=== PATIENT | female | born 1985 | race Caucasian/White ===

== ENCOUNTER 2020-09-08 13:01 | Outpatient (REF) | payer MEDICAID, SELFPAY ==
--- NOTE | 2020-09-08 | US_ITS ---
EXAMINATION: US THYROID CLINICAL INFORMATION: Nontoxic multinodular goiter. COMPARISON: Ultrasound thyroid soft tissues 05/14/2019 TECHNIQUE: Linear transducer verdugo-scale and color Doppler examination with attention to the region of the thyroid. FINDINGS: SIZE: Measurements of the thyroid lobes and nodules are given in sagittal, anteroposterior and transverse dimensions respectively. SIZE: Measurements of the thyroid lobes and nodules are given in sagittal, anteroposterior and transverse dimensions respectively. Right thyroid lobe: 4.7 x 1.5 x 1.4 cm, volume 5.3 mL. Previously 4.3 x 1.1 x 1.5 cm, volume 3.5 mL. Left thyroid lobe: 5.2 x 1.2 x 1.4 cm, volume 4.5 mL. Previously 5.2 x 1.2 x 1.5 cm, volume 4.7 mL. Isthmus: 0.37 cm in maximum AP dimension. Previously 0.28 cm. PARENCHYMA: The gland echotexture is homogeneous. Thyroid vascularity is normal. RIGHT THYROID LOBE: There are 3 nodules seen. 1. Location: Upper. Size: 0.8 x 0.5 x 0.4 cm. Previous: 0.4 x 0.5 x 0.4 cm. Nodule characteristics: Heterogeneous, hypoechoic rind with no intranodular flow. 2. Location: Midpole. Size: 0.2 x 0.2 x 0.2 cm. Nodule characteristics: Heterogeneous, hypoechoic rind with intranodular flow. 3. Location: Midpole. Size: 0.9 x 0.6 x 0.7 cm. Previous: 0.7 x 0.6 x 0.7 cm. Nodule characteristics: Heterogeneous, smoothly marginated with intranodular flow. ISTHMUS: There are 2 nodules seen. 1. Location: Right isthmus. Size: 0.4 x 0.3 x 0.3 cm. Nodule characteristics: Heterogeneous, hypoechoic rind with intranodular flow. 2. Location: Right isthmus. Size: 0.2 x 0.1 x 0.2 cm. Nodule characteristics: Hypoechoic, smoothly marginated with no intranodular flow. LEFT THYROID LOBE: There are 2 nodules seen. 1. Location: Midpole. Size: 1.6 x 0.8 x 0.9 cm. Previous: 1.4 x 0.9 x 1.0 cm. Nodule characteristics: Heterogeneous, smoothly marginated with intranodular flow. 2. Location: Midpole. Size: 0.4 x 0.2 x 0.2 cm. Nodule characteristics: Hypoechoic, smoothly marginated with intranodular flow. NODES: No lymphadenopathy is seen in the tissue surrounding the thyroid gland. US/US thyroid IMPRESSION: Nonsuspicious bilateral subcentimeter thyroid nodules. Some of the nodules are new. Recommend followup.
== END 2020-09-08 13:02 | disposition home or self-care (01) ==
LOC: HO.US 13:01
PROVIDERS: Visit Provider Internal Medicine
DX: E04.2 Nontoxic multinodular goiter (principal)
CPT/HCPCS: 76536

== ENCOUNTER 2020-09-24 09:36 | Outpatient (REF) | payer MEDICAID, SELFPAY ==
--- NOTE | ~2020-09-24 | MR_ITS ---
EXAMINATION: MR BRAIN WITHOUT AND WITH CONTRAST CLINICAL INFORMATION: Nipple discharge. Irregular menstruation. COMPARISON: None available. TECHNIQUE: MRI of the brain was obtained using routine sequences without and following the administration of 3.5 mL of Gadavist intravenous contrast. FINDINGS: No focal restricted diffusion is demonstrated to suggest acute or subacute cerebral ischemia. No evidence of acute or chronic hemorrhagic products on heme-sensitive imaging. Nonspecific few scattered periventricular and deep white matter T2 FLAIR hyperintensities. No additional parenchymal signal abnormalities. The ventricles are normal in morphology and size. No abnormal mass effect. No midline shift. Normal morphology and signal intensity of the pituitary gland on precontrast imaging. Normal posterior pituitary bright spot. No hyperenhancing or hypoenhancing lesions demonstrated on post contrast imaging. The pituitary infundibulum is normal in morphology and remains midline in position. The suprasellar cistern remains patent. No abnormal mass effect on the optic chiasm. No abnormalities of the posterior fossa with normal appearance of the brainstem and cerebellum. The cerebellar tonsils are positioned at the level the foramen magnum. Normal arterial and venous vascular flow voids are present. No abnormal contrast enhancement. Normal, homogeneous marrow signal. No signal abnormalities within the paranasal sinuses or mastoids. MR/MR head/brain wo/w con IMPRESSION: 1. No acute intracranial abnormalities. 2. Normal MRI evaluation of the pituitary gland. 3. Nonspecific mild white matter changes.
== END 2020-09-24 09:37 | disposition home or self-care (01) ==
LOC: HO.MRI 09:36
PROVIDERS: Visit Provider Family Medicine
DX: E06.9 Thyroiditis, unspecified (principal); N64.52 Nipple discharge; N92.6 Irregular menstruation, unspecified; R79.89 Other specified abnormal findings of blood chemistry
CPT/HCPCS: 70553; A9585

== ENCOUNTER → 2020-09-29 10:42 | Outpatient (BNVA) | payer MEDICAID, SELFPAY | PROVIDERS: PCP Family Medicine; Visit Provider Nurse Practitioner ==

== ENCOUNTER 2020-10-08 13:56 | Outpatient (REF) | payer MEDICAID, SELFPAY ==
--- NOTE | ~2020-10-08 | MM_ITS ---
EXAMINATION: MM DIAGNOSTIC DIGITAL BREAST TOMOSYNTHESIS, BILATERAL US DIAGNOSTIC ULTRASOUND BREAST, BILATERAL CLINICAL INFORMATION: 35-year-old with bilateral nipple discharge for 2 months with squeezing. No palpable mass. No prior breast imaging. Family history breast cancer, maternal aunt. The lifetime risk of breast cancer based on the Tyrer-Cuzick Model is 13%. COMPARISON: None (current study represents initial baseline exam). TECHNIQUE: Digital breast tomosynthesis is performed in both the craniocaudal and mediolateral oblique views along with computer-aided detection (CAD). Synthesized 2D images are generated from the tomosynthesis. Ultrasound bilateral breasts is targeted to the retroareolar and periareolar regions. In addition, targeted left ultrasound performed 8:00 position and targeted ultrasound right 10:00-11:00 position. Grayscale imaging and color Doppler are performed without and with harmonics. FINDINGS: There are scattered areas of fibroglandular density (ACR BI-RADS breast composition Category b). There is no significant mass. No architectural abnormality. No abnormal calcifications. No duct ectasia. There is no skin thickening or coarsening of the Renan's ligaments. The axilla are unremarkable. Subtle oval nodule present on left lower inner quadrant approximately 0.9 cm, better appreciated on tomography. There is subtle oval nodule mid upper right breast on MLO tomography measuring approximately 1.0 cm. Ultrasound bilateral retroareolar and periareolar breasts show no cystic or solid mass or focal duct ectasia. No skin thickening or edema tracking in the soft tissue planes. Additional targeted ultrasound inferior medial left breast demonstrates cyst 8:00 position 6 cm from nipple measuring 1.0 x 0.4 cm. There is fine internal avascular septation. There is increased through-transmission of sound and no associated color flow. Additional targeted ultrasound right breast demonstrates benign-appearing circumscribed hypoechoic mass 11:00 position 6 cm from nipple measuring approximately 1.1 x 0.9 x 0.4 cm. There are internal echoes, circumscribed margins, increased through-transmission of sound, and no associated color flow. This may represent cyst with apocrine metaplasia. There is a similar appearing adjacent satellite nodule slightly deeper measuring 0.6 x 4 cm. Results are discussed with the patient at time of visit. The bilateral nipple discharge may suggest a systemic endocrine etiology. This may be correlated with laboratories. The nodule upper right breast with adjacent similar-appearing satellite nodule are probably benign, possibly cyst with apocrine metaplasia. Recommend targeted right breast ultrasound in 6 months. The left breast is unremarkable. MM/MM tomosynthesis diagnostic BI IMPRESSION: 1. No suspicious mammographic finding. No duct ectasia. 2. Right: Benign-appearing nodule 11:00 position 1.1 cm with smaller adjacent similar appearing satellite nodule, possibly cyst with apocrine metaplasia. 3. Left: Incidental cyst 8:00 position 1.0 cm. ASSESSMENT: BI-RADS 3: Probably Benign RECOMMENDATION: 1. The presence of bilateral nipple discharge may suggest underlying systemic/endocrine etiology. This could be correlated with laboratories. 2. Targeted right breast ultrasound in 6 months. This patient's information was entered into a reminder system with a target due date for their next mammogram.
== END 2020-10-08 13:57 | disposition home or self-care (01) ==
LOC: HO.MAMMO 13:56
PROVIDERS: PCP Family Medicine; Visit Provider Family Medicine
DX: N64.52 Nipple discharge (principal)
CPT/HCPCS: 76642; 77062; 77066

== ENCOUNTER → 2020-10-29 09:31 | Outpatient (BNVA) | payer MEDICAID, SELFPAY | PROVIDERS: PCP Family Medicine; Visit Provider Nurse Practitioner | DX: A04.8 Other specified bacterial intestinal infections (principal); R11.2 Nausea with vomiting, unspecified; K29.60 Other gastritis without bleeding ==

== ENCOUNTER → 2020-11-19 13:26 | Outpatient (BNVA) | payer MEDICAID, SELFPAY | PROVIDERS: PCP Family Medicine; Visit Provider Nurse Practitioner | DX: A04.8 Other specified bacterial intestinal infections (principal); R11.2 Nausea with vomiting, unspecified; K29.60 Other gastritis without bleeding ==

== ENCOUNTER → 2020-12-31 15:32 | Outpatient (BNVA) | payer MEDICAID, SELFPAY | PROVIDERS: PCP Family Medicine; Visit Provider Student in an Organized Health Care Education/Training Program | DX: M79.7 Fibromyalgia (principal) | CPT/HCPCS: 99212 ==

== ENCOUNTER 2021-04-27 13:12 | Outpatient (REF) | payer MEDICAID, SELFPAY ==
--- NOTE | ~2021-04-27 | US_ITS ---
EXAMINATION: US DIAGNOSTIC ULTRASOUND BREAST, LEFT CLINICAL INFORMATION: Short interval follow-up probable benign nodularity upper outer right breast. COMPARISON: Targeted right breast ultrasound 10/08/2020, baseline diagnostic mammography 10/08/2020. TC score 13%. TECHNIQUE: Ultrasound right breast is targeted to the upper outer quadrant. Grayscale imaging and color Doppler are performed without and with harmonics. FINDINGS: The hypoechoic nodule under 1 cm at 10:00-11:00 position 8 cm from nipple is stable measuring 0.6 cm in greatest dimension. Margins are smooth. There is an adjacent oval island of fibroglandular island versus isoechoic nodule similar to prior ultrasound and stable again measuring approximately 11 x 9 x 4 mm. There is no interval solid mass or architectural abnormality or focal duct ectasia. Results are discussed with the patient at time of visit. Targeted right breast ultrasound for one year follow-up will be due in 6 months. US/US breast RT limited IMPRESSION: Stable benign-appearing nodularity upper outer right breast on ultrasound. ASSESSMENT: BI-RADS 3: Probably Benign RECOMMENDATION: Targeted right breast ultrasound in 6 months (1 year follow-up). This patient's information was entered into a reminder system with a target due date for their next mammogram.
== END 2021-04-27 13:13 | disposition home or self-care (01) ==
LOC: HO.MAMMO 13:12
PROVIDERS: Visit Provider Family Medicine
DX: R92.2 Inconclusive mammogram (principal)
CPT/HCPCS: 76642

== ENCOUNTER 2021-10-28 13:27 | Outpatient (REF) | payer MEDICAID, SELFPAY ==
--- NOTE | ~2021-10-28 | US_ITS ---
EXAMINATION: US DIAGNOSTIC ULTRASOUND BREAST, RIGHT CLINICAL INFORMATION: Follow-up probable benign nodularity upper outer right breast, mammographic occult. COMPARISON: Baseline diagnostic mammography 10/08/2020, targeted right breast ultrasound 10/08/2020 and 04/27/2021. TECHNIQUE: Ultrasound of the right breast is targeted to the upper outer quadrant using grayscale imaging and color Doppler without and with harmonics. FINDINGS: Oval nodule 10:00 position 8 cm from nipple under 1 cm is stable in size and contour. There is no peripheral or internal color flow. Margins are smooth. Finding will be reassessed again in 12 months to conclude long-term surveillance. The island of fibroglandular tissue 11 x 4 x 9 mm previously suspected as an isoechoic nodule is also stable. This appears to represent fibroglandular tissue rather than a lesion. There is no interval mass or architectural abnormality. No focal duct ectasia. Results are provided to the patient at time of visit by the technologist. US/US breast RT limited IMPRESSION: Stable nodule upper outer right breast. ASSESSMENT: BI-RADS 3: Probably Benign RECOMMENDATION: Targeted ultrasound right breast in 12 months to conclude long-term surveillance. This patient's information was entered into a reminder system with a target due date for their next breast imaging.
== END 2021-10-28 13:28 | disposition home or self-care (01) ==
LOC: HO.MAMMO 13:27
PROVIDERS: PCP Family Medicine; Visit Provider Family Medicine
DX: N63.11 Unspecified lump in the right breast, upper outer quadrant (principal)
CPT/HCPCS: 76642

== ENCOUNTER → 2021-12-30 14:28 | Outpatient (BNVA) | payer MEDICAID, SELFPAY | PROVIDERS: Visit Provider Nurse Practitioner Family | DX: M79.7 Fibromyalgia (principal); M25.561 Pain in right knee; M25.562 Pain in left knee; L60.8 Other nail disorders | CPT/HCPCS: 99212 ==

== ENCOUNTER 2022-11-03 13:02 | Outpatient (REF) | payer MEDICAID, SELFPAY ==
--- NOTE | ~2022-11-03 | US_ITS ---
EXAMINATION: US DIAGNOSTIC ULTRASOUND BREAST, RIGHT CLINICAL INFORMATION: Probable benign nodularity upper outer right breast. COMPARISON: Right breast ultrasound 10/28/2021, 04/27/2021, 10/08/2020 (diagnostic, BI-RADS 3), bilateral mammography 10/08/2020 (baseline diagnostic). TECHNIQUE: Ultrasound right breast is targeted to the upper outer quadrant. Grayscale imaging and color Doppler are performed without and with harmonics. FINDINGS: The 2 adjacent areas for follow-up are similar in size and contour to prior ultrasound exams, and now considered to be benign. There is an island of fibroglandular tissue or isoechoic solid nodule parallel with skin again10:00 position 8 cm from nipple with greatest dimensions 1.1 cm. The adjacent smaller and slightly deeper satellite nodule is also stable, greatest dimension approximately 0.6 cm. There is no interval focal suspicious finding. No architectural abnormality. Results are discussed with the patient at time of visit. US/US breast RT limited IMPRESSION: The 2 adjacent nodules upper outer right breast are stable, now considered to be benign. ASSESSMENT: BI-RADS 2: Benign RECOMMENDATION: Routine annual mammography screening, beginning age 40, or earlier as clinical risk factors warrant. This patient's information was entered into a reminder system with a target due date for their next mammogram.
== END 2022-11-03 13:03 | disposition home or self-care (01) ==
LOC: HO.MAMMO 13:02
PROVIDERS: PCP Family Medicine; Visit Provider Family Medicine
DX: N63.11 Unspecified lump in the right breast, upper outer quadrant (principal)
CPT/HCPCS: 76642